=== PATIENT | male | born 1960 | race Caucasian/White ===

== ENCOUNTER → 2021-05-30 | Outpatient (CLI) | payer OTHER ==
[~2021-05-30] MED LIST: ASPIR 8181 M1 PO; CARDIZEM CD 18180 M3 PO; CARDIZEM CD240 MG PO; CITRACAL + BON1 EACH; IBUPROFEN; IBUPROFEN 800800 M1 PO; KEFLEX500 MG PO; MULTIVITAMINS; OMEPRAZOLE; PRILOSEC20 MG PO
== END ==
LOC: M.RAD 14:28
PROVIDERS: ATTEND Family Medicine
DX: R07.81 Pleurodynia (principal)